=== PATIENT | female | born 2000 | race African-American/Black ===

== ENCOUNTER 2019-03-18 18:42 | Emergency (ER) | payer MEDICAID ==
[~2019-03-18] VITALS: Ht 170.2 cm; Wt 93.0 kg
[2019-03-18 20:37] VITALS: BP 125/85
== END 2019-03-18 20:38 | disposition home or self-care (01) ==
LOC: ER 19:19
DX: S70.362A Insect bite (nonvenomous), left thigh, initial encounter (principal); L08.9 Local infection of the skin and subcutaneous tissue, unspecified; F12.10 Cannabis abuse, uncomplicated; Z98.890 Other specified postprocedural states; W57.XXXA Bitten or stung by nonvenomous insect and other nonvenomous arthropods, initial encounter; Y93.89 Activity, other specified; Y92.89 Other specified places as the place of occurrence of the external cause
CPT/HCPCS: 99283

== ENCOUNTER 2019-03-22 17:35 | Emergency (ER) | payer MEDICAID ==
[~2019-03-22] VITALS: Ht 170.2 cm; Wt 93.0 kg
[2019-03-22] MEDS ORDERED: ALBUTEROL (0.083%) 2.5MG/3ML NEB HHN ONE ×2 (20:15→21:30)
[2019-03-22 22:26] VITALS: BP 130/70
== END 2019-03-22 22:28 | disposition home or self-care (01) ==
LOC: ER 17:35
DX: R05 Cough (principal); F12.10 Cannabis abuse, uncomplicated; Z98.890 Other specified postprocedural states
CPT/HCPCS: 71045; 81025; 94640; 99284; J7611; Z7610

== ENCOUNTER 2019-03-29 15:31 | Emergency (ER) | payer MEDICAID ==
[~2019-03-29] VITALS: Ht 170.2 cm; Wt 92.0 kg
[2019-03-29 19:51] VITALS: BP 135/75
== END 2019-03-29 19:51 | disposition home or self-care (01) ==
LOC: ER 15:31
DX: J20.9 Acute bronchitis, unspecified (principal); F12.10 Cannabis abuse, uncomplicated
CPT/HCPCS: 99283

== ENCOUNTER 2022-05-18 22:27 | Emergency (ER) | payer MEDICAID | END 2022-05-19 03:14 | disposition left against medical advice (07) | LOC: ER 22:27 | DX: Z53.21 Procedure and treatment not carried out due to patient leaving prior to being seen by health care provider (principal) | CPT/HCPCS: 82962 ==